=== PATIENT | female | born 1990 | race Caucasian/White ===

== ENCOUNTER 2016-08-11 07:25 | Emergency (ER) | payer BC, OTHER ==
[~2016-08-11] VITALS: Ht 160 cm; Wt 97.0 kg
[~2016-08-11 07:25] MED LIST: DPPI150 IM; ESCI10TA17 PO; LORA-741 PO; MONT1TAB3 PO; SYMIN/8045 INH; TOPI100T45 PO; TPM25 PO
[2016-08-11 07:28] VITALS: TEMP 36.8; Ht 160 cm; Wt 97.0 kg
[2016-08-11] MEDS ORDERED: CIPROFLOXACIN HCL 0.3% OP SOLN 2.5 ML BTL OP STA (08:04)
[2016-08-11] MEDS ORDERED: CIPR0.3S OP (08:09)
--- NOTE | 2016-08-11 08:10 | EMERGENCY ROOM VISIT NOTE ---
History First contact with patient: 07:33 Chief Complaint: EYE ASSESSMENT Stated Complaint: LFT EYE PAIN,RED,GREEN DRAINAGE History of Present Illness The patient is a 26 year old female who presents to the Emergency Department by private vehicle for evaluation of her left eye redness, irritation, drainage. Last evening upon awakening she noticed pain and discharge from the affected eye. She worked the entire production supervisor off shift and noticed worsening discharge from the affected eye. She reports mild photosensitivity to the affected eye. She denies a blurred or double vision. She is had nasal congestion past several days. Her child was sick with pink eye recently as well. She rates her current discomfort is 7/10. She is tried [id number] medications for her symptoms. She denies any fevers, chills, worsening headaches, dizziness, lightheadedness, neck pain/stiffness, nausea, or vomiting. She does wear glasses. She does not use contact lenses. Review of Systems A complete 10-point Review of Systems was discussed with the patient, with pertinent positives and negatives listed in the History of Present Illness. All remaining Review of Systems questions can be considered negative unless otherwise specified. Past Medical/Surgical History Medical Problems: (1) Asthma (2) Bronchitis (3) Chronic migraine (4) Diabetes (5) Eczema (6) Sciatica (7) Stomach problems (8) [place] Teeth Removal Surgical Problems: (1) [place] teeth extracted Family History Cancer Heart disease Hypertension ITP Kidney stones Lung disease Social History Smoking Status: Former Smoker Alcohol Use: occasionally Drug Use: none Marital Status: Housing Status: lives with family Occupation Status: employed Current/Historical Medications Scheduled Budesonide/Formoterol Fumarate (Symbicort 80/4.5 Inhaler), 2 PUFFS INH BID Ciprofloxacin Hcl (Ophth) (Ciloxan Oph), 1 DROP OP Q4H Escitalopram (Lexapro), 10 MG PO DAILY Fluconazole (Fluconazole), 150 MG PO UD Medroxyprogesterone Acetate (Medroxyprogesterone Aceta), 150 MG IM UD Montelukast Sodium (Singulair), 10 MG PO DAILY Sumatriptan Succinate (Imitrex), 100 MG PO UD Topiramate (Topiramate), 50 MG PO HS Topiramate (Topamax), 100 MG PO DAILY Zolpidem Tartrate (Zolpidem Tartrate Er), 6.25 MG PO HS Allergies Coded Allergies: Hydrocodone (Unverified Allergy, Mild, motion sickness, 06/05/16) Morphine (Verified Allergy, Unknown, itchy, 06/05/16) Physical Exam Vital Signs Date Time Temp Pulse Resp B/P Pulse Ox O2 Delivery O2 Flow Rate FiO2 08/11/16 08:29 89 18 132/87 99 08/11/16 07:28 36.8 89 18 132/87 99 Room Air Right Eye Acuity: 20/20 Left Eye Acuity: 20/25 Pain Rating (0-10): 7 Physical Exam VITAL SIGNS - Vital signs and nursing notes were reviewed. GENERAL - 26-year-old female appearing her stated age. Communicates well with provider and answers questions appropriately. HEAD - Normocephalic, Atraumatic. No Vásquez's Sign or Raccoon's Eyes. No depressed skull fractures palpable. EYES - PERRL with EOMI bilaterally. Sclera without noticeable foreign body or excoriations. Moderate injection noted in the LEFT eye. Copious greenish purulent discharge from the LEFT eye. Without subconjunctival hemorrhage. Palpebral conjunctiva pink and moist with no injection or discharge noted. EARS - No deformities of external structures noted on gross examination bilaterally. Handle of malleus, umbo, cone of light, pars tensa/flaccid all easily visualized. NOSE - Midline and without cyanosis. Without discharge. MOUTH/OROPHARYNX - Without perioral cyanosis. Tongue midline with equal elevation of palate bilaterally. No tonsillar hypertrophy, erythema, or exudates noted. Good dentition noted. NECK - FROM assessed. No cervical lymphadenopathy noted. Medical Decision & Procedures Medications Administered Medications (Trade) Dose Ordered Sig/Max Route Start Time Stop Time Status Last Admin Dose Admin Ciprofloxacin HCl (Ciprofloxacin 0.3% Op Soln) 2 drops NOW STAT OP 08/11/16 08:04 08/11/16 08:05 DC 08/11/16 08:28 2 DROPS Procedure An Automated Tonometer was utilized to obtain bilateral orbital pressures. The pressures in the LEFT eye were found to be 18, 18, and 17. The pressures in the RIGHT eye were found to be 18, 17, and 15. Patient tolerated the procedure well and no complications were met. ED Course Patient was seen and evaluated by myself. Automated tonometry was performed by physician assistant professor student. Intraocular pressures are unremarkable. Patient was treated with Ciloxan drops. She was educated on worrisome symptoms for return visit to the emergency department. Patient discharged home in good condition. Medical Decision Given the patient's presentation and exam findings, I did elect to perform the above-mentioned workup. The patient presents today with greenish discharge from the LEFT eye. She has no fever. There are no visual disturbances. She is had nasal congestion recently. She has no headaches. Her neurological exam is complete the unremarkable. intraocular pressures are equal bilaterally. The patient will be treated with Ciloxan drops. She'll follow-up with her primary care provider from today's visit or return for any changing/worsening symptoms. Patient discharged home afebrile and in good condition. In the evaluation and treatment of this patient, the following differential diagnoses were considered: Corneal Abrasion, Conjunctivitis, Eye Contusion, Globe Injury, Orbital Floor Injury (Blowout Fracture), Corneal Ulcer, Keratitis , Herpes Zoster Ophthalmic, Blepharitis, Orbital Cellulitis, Iritis, Scleritis/ Episcleritis, Uveitis, Temporal Arteritis, Subconjunctival Hemorrhage. Impression Primary Impression: Conjunctivitis Departure Information Dispostion Home / Self-Care Condition GOOD Prescriptions Ciprofloxacin Hcl (Ophth) (CILOXAN OPH) 0.3 % Phuong 1 DROP OP Q4H for 7 Days, #1 BTL Prov: Jose Eduardo Ortiz PA-C 08/11/16 Referrals Alli Davila M.D. (PCP) Patient Instructions Conjunctivitis, My [facility] Additional Instructions You have been treated in the Emergency Department for Conjunctivitis of the LEFT Eye. You have been prescribed Ciloxan eye drops. This is an antibiotic which will help to prevent an infection from developing in your affected eye. You should use 2 drops in the affected eye every 2 hours while awake for the first 2 days, then every 4 hours for the remaining 5 days. This is a total of a 7-day course for these antibiotic eye drops. For pain control, you can use the following [id number] medicines (if >12 yo): - Regular strength (325mg/tab) Tylenol (acetaminophen) 2 tabs every 4-6 hours as needed. Do not exceed 12 tablets in a 24 hour period. Avoid taking more than 4 grams (4000 mg) of Tylenol per day. This includes any other sources of acetaminophen you may take on a regular basis. - Regular strength (200 mg/tab) Advil (ibuprofen) 1-2 tabs every 4-6 hours as needed. Do not exceed a dose of 3200 mg per day. Avoid rubbing your eyes for the next few days as this can cause irritation. Wear sunglasses when outside to help minimize your pain. You should relax in a quiet, dark room to help minimize your symptoms. Return to the emergency department if you develop the following symptoms despite treatment course outlined above: blurry vision, loss of vision, fever, intractable pain, increased redness, swelling, or purulent discharge. Problem Qualifiers Primary Impression: Conjunctivitis Conjunctivitis type: acute Acute conjunctivitis type: bacterial Laterality : left Qualified Codes: H10.32 - Unspecified acute conjunctivitis, left eye
[2016-08-11] MEDS ORDERED: IMT100 PO (08:13)
[2016-08-11] MEDS ORDERED: ZOLP6.2529 PO (08:13)
[2016-08-11] MEDS ORDERED: DFL150 PO (08:13)
[2016-08-11 08:29] VITALS: BP 132/87; PULSE 89; O2SAT 99
== END 2016-08-11 08:30 | disposition home or self-care (01) ==
LOC: C.EDB 07:26 → C.EDA 08:30
DX: H10.9 Unspecified conjunctivitis (principal); E11.9 Type 2 diabetes mellitus without complications; J45.909 Unspecified asthma, uncomplicated; Z87.891 Personal history of nicotine dependence; Z79.899 Other long term (current) drug therapy; Z88.5 Allergy status to narcotic agent; Z80.9 Family history of malignant neoplasm, unspecified; Z82.49 Family history of ischemic heart disease and other diseases of the circulatory system; Z84.1 Family history of disorders of kidney and ureter

== ENCOUNTER → 2016-08-25 | Outpatient (CLI) | payer BC, OTHER ==
[~2016-08-25] MED LIST changes: +DFL150 PO; +IMT100 PO; -LORA-741 PO; +ZOLP6.2529 PO
== END | disposition home or self-care (01) ==
LOC: C.PAPS 15:22
PROVIDERS: ATTEND Obstetrics & Gynecology
DX: Z01.419 Encounter for gynecological examination (general) (routine) without abnormal findings (principal)

== ENCOUNTER → 2016-08-25 | Outpatient (CLI) | payer BC, OTHER ==
[2016-08-25 14:54] LABS: URINE APPEARANCE CLEAR (CLEAR); URINE BILIRUBIN NEG (NEG); URINE COLOR YELLOW; URINE EPITHELIAL CELL AUTO >30 /lpf (0-5); URINE NITRITE NEG (NEG); URINE PH 5.5 (4.5-7.5); URINE SPECIFIC GRAVITY 1.013 (1.000-1.030); UROBILINOGEN NEG (NEG)
[2016-08-25 15:00] LABS: MANUAL MICROSCOPIC REQUIRED? NO; REVIEW REQ? YES
== END | disposition home or self-care (01) ==
LOC: C.LABSPEC 13:57
PROVIDERS: ATTEND Obstetrics & Gynecology
DX: N76.0 Acute vaginitis (principal); R39.89 Other symptoms and signs involving the genitourinary system

== ENCOUNTER → 2016-08-31 | Outpatient (CLI) | payer BC, OTHER ==
[2016-08-31 10:57] LABS: BASO % 0.5 %; BASO ABS # 0.05 K/uL (0-0.2); COMPLETE YES; IG% 0.3 %; LYMPH % 27.9 %; LYMPH ABS # 2.74 K/uL (1.2-3.4); MEAN CELL VOLUME 83.8 fL (80-100); MEAN CORPUSCULAR HEMOGLOBIN 28.2 pg (25-34); MEAN CORPUSCULAR HGB CONC 33.7 g/dl (32-36); MEAN PLATELET VOLUME 9.1 fL (7.4-10.4); MONO % 7.5 %; NEUT % 61.8 %; PLATELET COUNT 431 K/uL (130-400); RED BLOOD COUNT 4.89 M/uL (4.2-5.4); WHITE BLOOD COUNT 9.81 K/uL (4.8-10.8)
[2016-08-31 11:34] LABS: ALT/SGPT 16 U/L (12-78); AST/SGOT 8 U/L (15-37); BLOOD UREA NITROGEN 8 mg/dl (7-18); BUN/CREATININE RATIO 9.3 (10-20); CALCIUM 8.8 mg/dl (8.5-10.1); CARBON DIOXIDE 23 mmol/L (21-32); CHLORIDE 111 mmol/L (98-107); CREATININE 0.87 mg/dl (0.60-1.20); GLUCOSE 95 mg/dl (70-99); POTASSIUM 3.7 mmol/L (3.5-5.1); SODIUM 143 mmol/L (136-145)
[2016-08-31 11:37] LABS: ALB/GLOB RATIO 1.1 (0.9-2); ALKALINE PHOSPHATASE 156 U/L (45-117)
== END | disposition home or self-care (01) ==
LOC: C.LAB1850 09:45
PROVIDERS: ATTEND Obstetrics & Gynecology
DX: R53.83 Other fatigue (principal); E55.9 Vitamin D deficiency, unspecified; N64.3 Galactorrhea not associated with childbirth

== ENCOUNTER → 2016-09-07 | Outpatient (CLI) | payer BC, OTHER ==
--- NOTE | 2016-09-07 18:26 | DIAGNOSTIC IMAGING REPORT ---
SINUSES MIN 3 VIEWS ROUTINE CLINICAL HISTORY: Left-sided sinus pain. Shortness of breath. COMPARISON STUDY: No previous studies for comparison. FINDINGS: No air-fluid levels are visualized. There is no evidence of significant mucoperiosteal thickening. IMPRESSION: No conventional radiographic evidence of acute sinusitis. Electronically signed by: Phillip Sales M.D. 09/07/2016 6:24 PM Dictated Date/Time: 09/07/2016 6:23 PM
== END | disposition home or self-care (01) ==
LOC: C.RAD 17:15
PROVIDERS: ATTEND Internal Medicine Pulmonary Disease
DX: R06.02 Shortness of breath (principal)

== ENCOUNTER → 2016-09-13 | Outpatient (CLI) | payer BC, OTHER ==
[2016-09-13 17:50] LABS: IMMUNOGLOBULN M 91.2 mg/dL (40-230)
== END | disposition home or self-care (01) ==
LOC: C.LAB 16:02
PROVIDERS: ATTEND Internal Medicine Pulmonary Disease
DX: R79.9 Abnormal finding of blood chemistry, unspecified (principal)

== ENCOUNTER → 2017-05-04 | Outpatient (CLI) | payer OTHER | END | disposition home or self-care (01) | LOC: C.LABSPEC 13:23 | PROVIDERS: ATTEND Obstetrics & Gynecology | DX: B37.3 Candidiasis of vulva and vagina (principal) ==

== ENCOUNTER → 2017-05-25 | Outpatient (CLI) | payer OTHER ==
[2017-05-25 15:43] LABS: BASO % 0.5 %; BASO ABS # 0.04 K/uL (0-0.2); COMPLETE YES; HEMATOCRIT 41.1 % (37-47); IG% 0.2 %; LYMPH % 32.1 %; LYMPH ABS # 2.83 K/uL (1.2-3.4); MEAN CELL VOLUME 85.6 fL (80-100); MEAN CORPUSCULAR HEMOGLOBIN 28.3 pg (25-34); MEAN CORPUSCULAR HGB CONC 33.1 g/dl (32-36); MEAN PLATELET VOLUME 9.5 fL (7.4-10.4); MONO % 6.8 %; NEUT % 58.4 %; PLATELET COUNT 341 K/uL (130-400); WHITE BLOOD COUNT 8.81 K/uL (4.8-10.8)
[2017-05-25 16:17] LABS: ALKALINE PHOSPHATASE 138 U/L (45-117); ALT/SGPT 20 U/L (12-78); BLOOD UREA NITROGEN 10 mg/dl (7-18); BUN/CREATININE RATIO 11.1 (10-20); CALCIUM 8.4 mg/dl (8.5-10.1); CARBON DIOXIDE 19 mmol/L (21-32); CHLORIDE 113 mmol/L (98-107); CREATININE 0.93 mg/dl (0.60-1.20); GLUCOSE 97 mg/dl (70-99); MAGNESIUM 2.4 mg/dl (1.8-2.4); POTASSIUM 3.6 mmol/L (3.5-5.1); SODIUM 141 mmol/L (136-145)
[2017-05-25 16:27] LABS: ALB/GLOB RATIO 1.1 (0.9-2); AST/SGOT 8 U/L (15-37); TOTAL IRON BINDING CAPACITY 332 mcg/dl (250-450)
== END | disposition home or self-care (01) ==
LOC: C.LAB1850 14:42
PROVIDERS: ATTEND Physician Assistant
DX: H83.2X9 Labyrinthine dysfunction, unspecified ear (principal)

== ENCOUNTER → 2017-07-06 | Day surgery (SDC) | payer OTHER ==
[2017-06-07 14:48] VITALS: Ht 160 cm; Wt 100.5 kg
[~2017-07-06] VITALS: Ht 160 cm; Wt 100.5 kg
[~2017-07-06] MED LIST changes: +ATROPINE SULFATE 0.1 MG/ML 5ML SYR IV PRN; +CYAN100T PO; +CYM/30 PO; +DEXAMETHASONE SOD INJ 4 MG/ML VIAL ONE; -DFL150 PO; +EpHEDrine SULFATE INJ 50 MG/ML AMP IV PRN; +FENTANYL CITRATE INJ 50 MCG/1 ML 2 ML VIAL IV PRN; +FENTANYL CITRATE INJ 50 MCG/1 ML 2 ML VIAL ONE; +FERR325T5 PO; +GLYCOPYRROLATE INJ 0.2 MG/ML VIAL ONE; +IRON PO; +KETOROLAC TROMETHAMINE 30 MG/ML VIAL IV. PRN; +LACTATED RINGER'S 1000ML 1,000 ML IV SCH; +LIDOCAINE HCL 1% 20 ML VIAL ONE; +LIDOCAINE HCL 2% 2 ML VIAL (20MG/ML) ONE; +LORA-741 PO; +METF500T5 PO; +MIDAZOLAM HCL 1 MG/ML 2ML VIAL ONE; +NEOSTIGMINE METHYLSULFATE 5 MG/5 ML SYR ONE; +ONDA8TAB62 SL; +ONDANSETRON INJ 2 MG/ML 2 ML VIAL IV PRN; +ONDANSETRON INJ 2 MG/ML 2 ML VIAL ONE; +OXYC-57 PO; +OXYC-737 PO; +OXYC-90 PO; +OXYCODONE/ACETAMINOPHEN 5-325 TAB PO PRN; +PROMETHAZINE HCL INJ 25 MG in SODIUM CHLORIDE 0.9% 50ML 50 ML IV PRN; +PROPOFOL IV EMULSION 10 MG/ML 20 ML VIAL IV ONE; +ROCURONIUM BROMIDE 10 MG/ML 5 ML VIAL IV ONE; +SCOPOLAMINE 1.5 MG TDSY TD ONE; +SODIUM CHLORIDE 0.9% 1000ML 1,000 ML IV SCH; +SUCCINYLCHOLINE CHLORIDE 20 MG/ML 10 ML VIAL IV ONE; +TAMS0.4C38 PO; -TPM25 PO; +VTMD1000 PO; +ZOLP10TA PO; -ZOLP6.2529 PO
--- NOTE | 2017-07-06 12:05 | History & Physical Bridge - SC ---
H&P Re-Evaluation Bridge Note: I have examined the patient, reviewed the History & Physical and in the interval since the performance of the History & Physical I have noted the following changes of clinical significance: No changes noted
--- NOTE | 2017-07-06 13:05 | [facility] Post Operative Brief Note ---
Immediate Operative Summary Operative Date Jul 06, 2017. Pre-Operative Diagnosis Request for sterilization Post-Operative Diagnosis Same as preop Procedure(s) Performed Laparoscopic Tubal Sterilization Surgeon Dr. Chester Electrical Engineering Director Surgeon(s) None Estimated Blood Loss 5 mL Findings normal uterus tubes & ovaries. liver edge is smooth appendix normal but only proximal portion can be seen well. Fluids (cc crystalloids) 700 Specimens None Drains none Anesthesia GET Complication(s) None Disposition Recovery Room / PACU
--- NOTE | 2017-07-06 13:14 | Discharge Instructions-SurgCtr ---
Discharge Instructions Date of Service Jul 06, 2017. Visit Reason for Visit: Request For Sterilization Discharge Discharge Diagnosis / Problem: recovery from laparoscopic sterilization Discharge Goals Goal(s): Therapeutic intervention Medications Stopped Medications Name(s): metformin last dose 07/03/17 Activity Recommendations Activity Limitations: per Instructions/Follow-up section Anesthesia . Post Anesthesia Instructions: If you have had General Anesthesia or IV Sedation: * Do not drive today. * Resume driving when surgeon permits. * Do not make important decisions or sign legal documents today. * Call surgeon for: 1. Temperature elevations greater than 101 degrees F. 2. Uncontrollable pain. 3. Excessive bleeding. 4. Persistent nausea and vomiting. 5. Medication intolerance (nausea, vomiting or rash). * For nausea and vomiting use only clear liquids such as: tea, soda, bouillon until nausea subsides, then gradually increase diet as tolerated. * If you have any concerns or questions, call your surgeon's office. If physician is unavailable and it is an emergency, call 911 or go to the nearest emergency room. . Instructions / Follow-Up Instructions / Follow-Up ACTIVITY RECOMMENDATIONS: * Rest the first 2-3 days. You should be back to your normal activity levels by day 3. * No heavy lifting for 2 weeks. * No intercourse, tampons or douching for 1-2 weeks. * You may shower the next day. * Do not drive anytime that you are taking narcotic pain medicines. RETURN TO SCHOOL/WORK: * May return to school or work after 2-3 days. DIET: Nausea may occur in the immediate post-operative period. If so, take clear liquids such as tea, bouillon, apple juice until all nausea has subsided, then resume usual diet. MEDICATIONS: Resume previous medications unless instructed otherwise by your surgeon. Ibuprofen 200mg 2-3 tablets every 4-6 hours as needed -- OR -- Aleve 2 tablets every 8-12 hours as needed for post-operative discomfort Medications are over the counter. Tylenol may be used if above medications are contraindicated or not preferred. Medication should be taken with food or milk. Do not take on an empty stomach. SPECIAL CARE INSTRUCTIONS: * Check temperature twice daily for one week. report any elevation over 101 degrees. * You may experience some vagina spotting and/or bleeding. This is normal for 1 -2 weeks and should not be heavier than a normal period. If it is unusual in amount, call your physician. * Post-operative discomfort may consist of a sore throat, a "bloated" feeling and pain in the shoulders. these are normal symptoms, which usually only last for 2-3 days. * Remove band-aids tomorrow and shower. There is no need to replace band-aids unless there is drainage or discomfort. FOLLOW UP VISIT: Call your doctor's office for a post-operative 2 week visit if not already scheduled. Diet Recommendations Home Diet: resume previous diet Procedures Procedures Performed: Laparoscopic Tubal Sterilization Pending Studies Studies pending at discharge: no Medical Emergencies . Who to Call and When: Medical Emergencies: If at any time you feel your situation is an emergency, please call 911 immediately. . Non-Emergent Contact Non-Emergency issues call your: Farm Contractor Buyer . . "Provider Documentation" section prepared by Luisa AGUDELO Drug Monitoring Program Search Results: no issues identified
--- NOTE | 2017-07-06 14:02 | OPERATIVE REPORT ---
DATE OF OPERATION: 07/06/2017 PREOPERATIVE DIAGNOSES: Unwanted fertility and multiparity. POSTOPERATIVE DIAGNOSES: Same. PROCEDURE: Laparoscopic bilateral tubal cauterization. BLOOD LOSS: Less than 5 mL. ANESTHESIA: General endotracheal. HISTORY OF PRESENT ILLNESS: The patient is a 27-year-old multigravida white female, who is requesting permanent sterilization for unwanted fertility and multiparity. She understands the risks of the procedure including the risk for future pregnancies both ectopic and intrauterine and she is willing to proceed. GROSS FINDINGS: External genitalia within normal limits. Cervix is without lesions. Vagina is well estrogenized. Under direct laparoscopic evaluation, the pelvis was noted to be normal with a normal uterus, bilateral ovaries and fallopian tubes. No evidence of endometriosis is present. Liver edge is smooth and normal. Gallbladder is not enlarged. Only the proximal end of the appendix could be visualized and it also appeared to be normal. DESCRIPTION OF PROCEDURE: After the patient received adequate general endotracheal anesthesia, she was prepped and draped in the usual sterile fashion. After bladder was emptied, a weighted speculum was placed in the vagina and the cervix was identified. The anterior lip was grasped with single tooth tenaculum. The Alvarez's cannula was then inserted into the cervical canal. Gloves were then changed. A subumbilical incision was made with the scalpel. The Veress needle was introduced into the peritoneal cavity. Approximately 3 liters of CO2 instill into the peritoneal cavity. The Veress needle was then removed. The 10-mm disposable trocar was placed into the peritoneal cavity. Findings were noted as above. The left fallopian tube was first identified and followed to its fimbriated end. It was grasped in the mid portion and cauterized to lost resistance with the Kleppinger forceps in 4 contiguous sites. The right fallopian tube was then identified and followed to its fimbriated end. It too was grasped in the mid portion and cauterized to lost resistance in 4 contiguous sites. After examining the upper abdomen and the pelvis, the case was terminated. As mentioned, the CO2 gas was expelled through her incision. The fascia was then closed with a single stitch of 0 Vicryl. Skin edges were reapproximated using a subcuticular stitch of 4-0 Vicryl. The Alvarez's cannula and single tooth tenaculum were removed from the cervix and hemostasis was noted to be satisfactory. The patient tolerated the procedure well and was stable upon arrival in recovery room. I attest to the content of the Intraoperative Record and any orders documented therein. Any exception s are noted below.
[2017-07-06 14:04] VITALS: BP 117/80; PULSE 81; O2SAT 99
--- NOTE | 2017-07-06 14:04 | Anesthesia Progress Nt - [facility] ---
Anesthesia Post Op Note Date & Time Jul 06, 2017 at 14:04 Vital Signs Pain Intensity: 2 Vital Signs Past 12 Hours Date Time Temp Pulse Resp B/P (MAP) Pulse Ox O2 Delivery O2 Flow Rate FiO2 07/06/17 13:46 37.2 78 16 103/72 (82) 96 Room Air 07/06/17 13:44 36.5 07/06/17 13:42 82 17 07/06/17 13:42 81 17 96 07/06/17 13:40 110/87 (92) 07/06/17 13:37 Room Air 07/06/17 13:37 84 13 96 07/06/17 13:37 83 13 07/06/17 13:35 120/89 (95) 07/06/17 13:32 85 11 07/06/17 13:32 85 11 99 07/06/17 13:30 123/85 (90) 07/06/17 13:27 79 16 07/06/17 13:27 80 16 100 07/06/17 13:25 128/89 (96) 07/06/17 13:22 82 18 07/06/17 13:22 82 18 99 07/06/17 13:20 127/87 (102) 07/06/17 13:17 93 17 07/06/17 13:17 95 17 99 07/06/17 13:15 133/84 (95) 07/06/17 13:12 101 15 07/06/17 13:12 102 15 99 07/06/17 13:10 133/76 (91) 07/06/17 13:07 110 16 100 07/06/17 13:07 109 16 07/06/17 13:05 129/91 (113) 07/06/17 13:02 36.5 115 14 129/91 99 Diffusion Mask 5 07/06/17 11:06 36.8 82 20 117/81 (93) 97 Room Air Notes Mental Status: alert / awake / arousable, participated in evaluation Pt Amnestic to Procedure: Yes Nausea / Vomiting: adequately controlled Pain: adequately controlled Airway Patency, RR, SpO2: stable & adequate BP & HR: stable & adequate Hydration State: stable & adequate Anesthetic Complications: no major complications apparent
== END | disposition home or self-care (01) ==
LOC: X.SURG 10:34
PROVIDERS: ATTEND Obstetrics & Gynecology
DX: Z30.2 Encounter for sterilization (principal); J45.909 Unspecified asthma, uncomplicated; F41.9 Anxiety disorder, unspecified; F32.9 Major depressive disorder, single episode, unspecified; A63.0 Anogenital (venereal) warts; E03.9 Hypothyroidism, unspecified; R73.03 Prediabetes; G47.30 Sleep apnea, unspecified; Z83.2 Family history of diseases of the blood and blood-forming organs and certain disorders involving the immune mechanism; Z83.49 Family history of other endocrine, nutritional and metabolic diseases; Z82.49 Family history of ischemic heart disease and other diseases of the circulatory system; Z80.3 Family history of malignant neoplasm of breast; Z87.891 Personal history of nicotine dependence

== ENCOUNTER → 2017-08-18 | Outpatient (CLI) | payer OTHER ==
[~2017-08-18] MED LIST changes: -ATROPINE SULFATE 0.1 MG/ML 5ML SYR IV PRN; -CYM/30 PO; -DEXAMETHASONE SOD INJ 4 MG/ML VIAL ONE; -EpHEDrine SULFATE INJ 50 MG/ML AMP IV PRN; -FENTANYL CITRATE INJ 50 MCG/1 ML 2 ML VIAL IV PRN; -FENTANYL CITRATE INJ 50 MCG/1 ML 2 ML VIAL ONE; -FERR325T5 PO; +GADAVIST IV PRN; -GLYCOPYRROLATE INJ 0.2 MG/ML VIAL ONE; -KETOROLAC TROMETHAMINE 30 MG/ML VIAL IV. PRN; -LACTATED RINGER'S 1000ML 1,000 ML IV SCH; -LIDOCAINE HCL 1% 20 ML VIAL ONE; -LIDOCAINE HCL 2% 2 ML VIAL (20MG/ML) ONE; -LORA-741 PO; -MIDAZOLAM HCL 1 MG/ML 2ML VIAL ONE; -NEOSTIGMINE METHYLSULFATE 5 MG/5 ML SYR ONE; -ONDA8TAB62 SL; -ONDANSETRON INJ 2 MG/ML 2 ML VIAL IV PRN; -ONDANSETRON INJ 2 MG/ML 2 ML VIAL ONE; -OXYC-737 PO; -OXYC-90 PO; -OXYCODONE/ACETAMINOPHEN 5-325 TAB PO PRN; -PROMETHAZINE HCL INJ 25 MG in SODIUM CHLORIDE 0.9% 50ML 50 ML IV PRN; -PROPOFOL IV EMULSION 10 MG/ML 20 ML VIAL IV ONE; -ROCURONIUM BROMIDE 10 MG/ML 5 ML VIAL IV ONE; -SCOPOLAMINE 1.5 MG TDSY TD ONE; -SODIUM CHLORIDE 0.9% 1000ML 1,000 ML IV SCH; -SUCCINYLCHOLINE CHLORIDE 20 MG/ML 10 ML VIAL IV ONE; -TAMS0.4C38 PO
--- NOTE | 2017-08-18 09:52 | DIAGNOSTIC IMAGING REPORT ---
MRA HEAD WITHOUT CONTRAST HISTORY: Headaches. Mental status change. R51 TECHNIQUE: 3-D [id number] MRA of the brain was performed without contrast. COMPARISON STUDY: None. FINDINGS: Visualized intracranial internal carotid arteries, distal vertebral arteries, and basilar artery are widely patent. There is no significant stenosis, occlusion, or aneurysm seen within the bilateral ACAs, MCAs, or hooking machine operator. IMPRESSION: No significant stenosis, occlusion, or aneurysm within the [place]. The above report was generated using voice recognition software. It may contain grammatical, syntax or spelling errors. Electronically signed by: Jigar Leal M.D. 08/18/2017 9:51 AM Dictated Date/Time: 08/18/2017 9:48 AM
--- NOTE | 2017-08-18 09:55 | DIAGNOSTIC IMAGING REPORT ---
BRAIN COMBO HISTORY: 27 years-old Female R51 acute headaches with vision changes and insomnia COMPARISON: MRA head of same day, MRI brain 08/30/2012 TECHNIQUE: Multiplanar multisequence MRI the brain was obtained both with and without the use of 9.5 mL Gadavist FINDINGS: There is no restricted diffusion to suggest acute infarction. Cerebellar tonsils extend to the level of the foramen magnum without evidence of cerebellar tonsillar ectopia or Chiari I malformation. Corpus callosum, brainstem, optic chiasm, infundibulum and pituitary gland appear unremarkable. No significant degenerative changes of the imaged cervical spine. No acute intracranial hemorrhage, midline shift, abnormal extra-axial collections or hydrocephalus. Signal of the brain parenchyma appears to be within normal limits. No intracranial mass. The major flow voids at the level of the skull base appear patent. Mastoid air cells are clear. Mild mucosal thickening of the inferior maxillary sinuses bilaterally. Mild rightward bowing and spurring of the nasal septum. The orbits, scalp and calvarium appear unremarkable. There is no abnormal intra-axial or extra-axial enhancement identified. 8 mm perivascular space inferior to the left lentiform nuclei appears unchanged. IMPRESSION: 1. No acute intracranial abnormality identified. No abnormal enhancement. 2. Mild maxillary sinus disease. The above report was generated using voice recognition software. It may contain grammatical, syntax or spelling errors. Electronically signed by: Brijesh Arenas M.D. 08/18/2017 9:54 AM Dictated Date/Time: 08/18/2017 9:48 AM
== END | disposition home or self-care (01) ==
LOC: C.MRIBC 08:53
PROVIDERS: ATTEND Physician Assistant
DX: H53.9 Unspecified visual disturbance (principal); H83.2X9 Labyrinthine dysfunction, unspecified ear; R51 Headache; J32.0 Chronic maxillary sinusitis

== ENCOUNTER → 2017-09-20 | Outpatient (CLI) | payer OTHER ==
[~2017-09-20] MED LIST changes: -GADAVIST IV PRN
== END | disposition home or self-care (01) ==
LOC: C.PAPS 12:54
PROVIDERS: ATTEND Obstetrics & Gynecology
DX: Z01.419 Encounter for gynecological examination (general) (routine) without abnormal findings (principal)

== ENCOUNTER → 2017-09-27 | Outpatient (CLI) | payer OTHER ==
[2017-09-28 06:36] LABS: HEMOGLOBIN A1C 5.7 % (4.5-5.6)
== END | disposition home or self-care (01) ==
LOC: C.LABBFT 14:04
PROVIDERS: ATTEND Physician Assistant Medical
DX: R73.03 Prediabetes (principal)

== ENCOUNTER 2017-11-21 19:35 | Emergency (ER) | payer OTHER ==
[~2017-11-21] VITALS: Ht 160 cm; Wt 101.0 kg
[2017-11-21 19:36] VITALS: TEMP 36.7; Ht 160 cm; Wt 101.0 kg
[2017-11-21] MEDS ORDERED: IBUPROFEN 600 MG TAB PO STA (19:51)
--- NOTE | 2017-11-21 20:39 | DIAGNOSTIC IMAGING REPORT ---
L WRIST W/NAVICULAR MIN 3 VIEWS CLINICAL HISTORY: 27 years-old Female presenting with left wrist pain. TECHNIQUE: Frontal, bilateral oblique, lateral, and scaphoid views of the left wrist were obtained. COMPARISON: None. FINDINGS: No acute fracture or malalignment. No advanced degenerative change. No radiographic soft tissue abnormality. IMPRESSION: No acute osseous injury. Electronically signed by: Asher Davis M.D. 11/21/2017 8:37 PM Dictated Date/Time: 11/21/2017 8:37 PM
--- NOTE | 2017-11-21 20:57 | EMERGENCY ROOM VISIT NOTE ---
ED Visit Note First contact with patient: 19:46 CHIEF COMPLAINT: Left wrist pain HISTORY OF PRESENT ILLNESS: This 27-year-old female patient presents to the emergency department, ambulatory, complaining of pain in the left wrist since approximately 8 AM this morning. The patient states she has an autistic son who was having a meltdown. She was attempted to keep him from hurting himself by performing a type of bear hug restraint. She is uncertain exactly how the injury may have occurred, but states she has had increased pain in the left wrist since this incident. The patient is able to move their wrist. The patient states the pain is sharp and 5/10. No laceration, no weakness. No numbness or tingling. The patient denies any other injury. The patient is able to move their fingers and elbow without difficulty. The patient has not had a previous fracture to this wrist. The patient has taken nothing for the pain. REVIEW OF SYSTEMS: A 6 system review of systems was performed with positives and pertinent negatives in the HPI. ALLERGIES: Hydrocodone, morphine MEDICATIONS: Metformin, Symbicort, Lexapro, Singulair, Imitrex, Topamax, Ambien PMH: Diabetes, anxiety, depression, asthma SOCIAL HISTORY: The patient lives locally with family. She denies drug, alcohol , tobacco use. PHYSICAL EXAM: Vital Signs: Reviewed Nurse's notes, vital signs stable. GENERAL : This is a 27-year-old white female, in no acute distress, but appears to be in pain, well-developed, well-nourished. NEURO: Alert and oriented to person place and time. Normal sensation to light and sharp touch. MUSCULOSKELETAL: There is no deformity of the left wrist. There is tenderness and edema over the midline of the wrist, between the distal radius and ulna. There is no snuff box tenderness. Range of motion is full. There is no tenderness of the elbow, hand or fingers. Casing Inspector strength 5/5. Radial pulse 2+. SKIN: Normal and intact. The hand is warm and well perfused with capillary refill less than 2 seconds. RADIOLOGY: L WRIST W/NAVICULAR MIN 3 VIEWS CLINICAL HISTORY: 27 years-old Female presenting with left wrist pain. TECHNIQUE: Frontal, bilateral oblique, lateral, and scaphoid views of the left wrist were obtained. COMPARISON: None. FINDINGS: No acute fracture or malalignment. No advanced degenerative change. No radiographic soft tissue abnormality. IMPRESSION: No acute osseous injury. Electronically signed by: Asher Davis M.D. 11/21/2017 8:37 PM Dictated Date/Time: 11/21/2017 8:37 PM EMERGENCY DEPARTMENT COURSE: I examined the patient. The patient was given ibuprofen. An X-ray of the left wrist was reviewed by myself and radiologist and showed no acute osseous injury. A wrist lacer splint was placed under my direction and the position was satisfactory. Neurovascular status rechecked and intact. I discussed discharge instructions and follow-up instructions. All questions answered to patient's satisfaction. Discharge instructions reviewed. The patient was discharged home in good condition. I attest that I have personally reviewed the patient's current medication list. Patient was found to have normal blood pressure on screening and does not require follow-up. Etiologies such as soft tissue injury, fracture, dislocation, neurovascular compromise, compartment syndrome, as well as others were entertained. DIAGNOSIS: Left wrist sprain The chart was completed utilizing [employer] Speech voice recognition software. Grammatical errors, random word insertions, pronoun errors, and incomplete sentences are an occasional consequence of this system due to software limitations, ambient noise, and hardware issues. Any formal questions or concerns about the content, text, or information contained within the body of this dictation should be directly addressed to the provider for clarification. Problem List Medical Problems: (1) Asthma Status: Chronic (2) Bronchitis Status: Chronic (3) Chronic migraine Status: Chronic (4) Diabetes Status: Chronic (5) Eczema Status: Chronic (6) Sciatica Status: Chronic (7) Stomach problems Status: Chronic (8) [place]arkio Teeth Removal Status: Resolved Surgical Problems: (1) [place] teeth extracted Status: Resolved Current/Historical Medications Scheduled Cholecalciferol (Vitamin D3), 4,000 UNIT PO QAM Cyanocobalamin (Vitamin B-12), 100 MCG PO QPM Escitalopram (Lexapro), 10 MG PO QPM Medroxyprogesterone Acetate (Medroxyprogesterone Aceta), 150 MG IM UD Metformin Hcl Er (Glucophage Er), 500 MG PO QPM Montelukast Sodium (Singulair), 10 MG PO QAM Topiramate (Topamax), 100 MG PO BID [Iron], 65 MG PO DAILY Scheduled PRN Budesonide/Formoterol Fumarate (Symbicort 80/4.5 Inhaler), 2 PUFFS INH BID PRN for Shortness of Breath Oxycodone/Acetaminophen 5MG/325MG (Percocet 5MG/325MG), 1 TAB PO Q4H PRN for Pain (pain scale 1-5) Sumatriptan Succinate (Imitrex), 100 MG PO UD PRN for Migraine Zolpidem Tartrate (Ambien), 10 MG PO DAILY PRN for Sleep Allergies Coded Allergies: Hydrocodone (Verified Adverse Reaction, Mild, motion sickness, 07/06/17) Morphine (Verified Adverse Reaction, Mild, itchy, 07/06/17) Vital Signs Date Time Temp Pulse Resp B/P (MAP) Pulse Ox O2 Delivery O2 Flow Rate FiO2 11/21/17 21:55 79 18 123/86 99 Room Air 11/21/17 19:36 36.7 96 20 99 Room Air Medications Administered Medications (Trade) Dose Ordered Sig/Max Route Start Time Stop Time Status Last Admin Dose Admin Ibuprofen (Motrin Tab) 600 mg NOW STAT PO 11/21/17 19:51 11/21/17 19:52 DC 11/21/17 20:02 600 MG Departure Information Impression Primary Impression: Left wrist sprain Dispostion Home / Self-Care Condition GOOD Referrals Alli Davila M.D. (PCP) Patient Instructions ED Sprain Wrist, [facility] Additional Instructions You were seen in the emergency department today for a left wrist pain. As discussed, x-ray was negative for acute fracture. I suspect a sprain as the cause of your symptoms. Ibuprofen(Motrin, Advil) may be used for fever or pain. Use 600mg every six hours as needed. Take with food. Avoid using more than 2400mg in a 24 hour period. Do not use 2400mg per day for more than three consecutive days without physician direction. Prolonged inappropriate use can lead to stomach upset or ulcers. (AND/OR) Acetaminophen(Tylenol) may be used for fever or pain. Use 1000mg every six hours as needed. Avoid using more than 3000mg in a 24 hour period. Ice compresses for 20 minutes at a time four times daily for 2-3 days. Use the wrist brace for comfort. Rest and elevate your injury. Do not get the splint wet. If your splint feels excessively tight, you have worsening pain, develop numbness or tingling, or your digits appear blue, loosen the anil wrap. Then reapply the anil wrap gently without removing the splint. If your symptoms are not quickly relieved return to the ER for re- evaluation. Return to the ER immediately for any numbness, tingling, severe pain, extreme swelling in the extremity or as needed. Follow-up with your primary care physician in 2 to 3 days for a recheck of your current condition. If no improvement within 1 week, you may need to have a repeat x-ray performed. Problem Qualifiers Primary Impression: Left wrist sprain Encounter type: initial encounter Qualified Codes: S63.502A - Unspecified sprain of left wrist, initial encounter
[2017-11-21 21:55] VITALS: BP 123/86; PULSE 79; O2SAT 99
== END 2017-11-21 21:15 | disposition home or self-care (01) ==
LOC: C.EDB 19:36 → C.EDD 21:15
DX: S63.502A Unspecified sprain of left wrist, initial encounter (principal); X50.1XXA Overexertion from prolonged static or awkward postures, initial encounter; E11.9 Type 2 diabetes mellitus without complications; F41.9 Anxiety disorder, unspecified; F32.9 Major depressive disorder, single episode, unspecified; J45.909 Unspecified asthma, uncomplicated; Z79.899 Other long term (current) drug therapy; Z88.5 Allergy status to narcotic agent